=== PATIENT | female | born 1990 | race African-American/Black ===

== ENCOUNTER 2018-03-12 17:21 | Emergency (ER) | payer SELFPAY ==
[~2018-03-12] VITALS: Ht 162.6 cm; Wt 54.4 kg
[~2018-03-12 17:21] MED LIST: TRAZODONE HCL150 MG PO
== END 2018-03-12 18:37 | disposition home or self-care (01) ==
LOC: FSED 17:21
DX: L03.319 Cellulitis of trunk, unspecified (principal); F17.210 Nicotine dependence, cigarettes, uncomplicated
CPT/HCPCS: 85025; 99283